=== PATIENT | female | born 1970 | race Caucasian/White ===

== ENCOUNTER 2016-06-18 16:57 | Emergency (ER) | payer OTHER ==
--- NOTE | 2016-06-18 17:53 | Emergency Department Record ---
History of Present Illness - General Chief Complaint: Back Pain/Injury Stated Complaint: LOWER BACK PAIN Time Seen by Provider: 06/18/16 17:45 Source: Patient, RN notes reviewed - History of Present Illness Initial Comments: left flank pain which started yesterday and she has had kidney stones before. Onset/Timin -: Days(s) Similar Symptoms Previously: Yes Place: Home, Work Radiation: Abdomen Severity scale (1-10): 8 Improves With: None Worsens With: None Context: History of kidney stones Associated Symptoms: Nausea/vomiting - Related Data Home Medications Medication Instructions Recorded Confirmed Last Taken Desvenlafaxine Succinate [Pristiq] 50 mg PO DAILY 06/18/16 06/18/16 Unknown Tolterodine Tartrate [Detrol] 1 mg PO DAILY 06/18/16 06/18/16 Unknown Previous Rx's Medication Instructions Recorded Hydrocodone/Acetaminophen [[place] 1 tab PO Q4HR PRN #20 tab 06/18/16 5mg/325mg] Tamsulosin HCl [Flomax] 0.4 mg PO DAILY #7 cap.er.24h 06/18/16 Allergies Allergy/AdvReac Type Severity Reaction Status Date / Time No Known Drug Allergies Allergy Verified 04/05/15 09:25 Travel Screening - Travel/Exposure Within Last 30 Days Have you traveled within the last 30 days?: No Review of Systems Reviewed: No additional complaints except as noted below Constitutional: Reports: As per HPI. Denies: Chills, Fever, Malaise, Night sweats, Weakness, Weight change Eyes: Reports: As per HPI. Denies: Eye discharge, Eye pain, Photophobia, Vision change ENT: Reports: As per HPI. Denies: Congestion, Dental pain, Ear pain, Epistaxis , Hearing loss, Throat pain Respiratory: Reports: As per HPI. Denies: Cough, Dyspnea, Hemoptysis, Stridor, Wheezes Cardiovascular: Reports: As per HPI. Denies: Arrhythmia, Chest pain, Dyspnea on exertion, Edema, Murmurs, Orthopnea, Palpitations, Paroxysmal nocturnal dyspnea, Rheumatic Fever, Syncope Endocrine: Reports: As per HPI. Denies: Fatigue, Heat or cold intolerance, Polydipsia, Polyuria Gastrointestinal: Reports: As per HPI, Abdominal pain (left lower quad pain). Denies: Constipation, Diarrhea, Hematemesis, Hematochezia, Melena, Nausea, Vomiting Genitourinary: Reports: As per HPI. Denies: Abnormal menses, Discharge, Dyspareunia, Dysuria, Frequency, Hematuria, Incontinence, Retention, Urgency Musculoskeletal: Reports: As per HPI. Denies: Arthralgia, Back pain, Gout, Joint swelling, Myalgia, Neck pain Skin: Reports: As per HPI. Denies: Bruising, Change in color, Change in hair/ nails, Lesions, Pruritus, Rash Neurological: Reports: As per HPI. Denies: Abnormal gait, Confusion, Headache, Numbness, Paresthesias, Seizure, Tingling, Tremors, Vertigo, Weakness Psychiatric: Reports: As per HPI. Denies: Anxiety, Auditory hallucinations, Depression, Homicidal thoughts, Suicidal thoughts, Visual hallucinations Hematological/Lymphatic: Reports: As per HPI. Denies: Anemia, Blood Clots, Easy bleeding, Easy bruising, Swollen glands Past Medical History - SOCIAL HISTORY Smoking Status: Never smoker Alcohol Use: None Drug Use: None - RESPIRATORY Hx Respiratory Disorders: No - CARDIOVASCULAR Hx Cardio Disorders: No - NEURO Hx Neuro Disorders: No - GI Hx GI Disorders: No - Hx Genitourinary Disorders: Yes Hx Kidney Stones: Yes Comment:: overactive bladder - ENDOCRINE Hx Endocrine Disorders: No - MUSCULOSKELETAL Hx Musculoskeletal Disorders: No - PSYCH Hx Psych Problems: Yes Hx Depression: Yes - HEMATOLOGY/ONCOLOGY Hx Hematology/Oncology Disorders: No Family Medical History Any Significant Family History?: Yes Hx Heart Disease: Father, Mother *Heart Comment: afib, heart attacks Physical Exam - General General Appearance: Alert, Oriented x3, Cooperative, No acute distress - Head Head exam: Normal inspection - Eye Eye exam: Normal appearance, PERRL Pupils: Normal accommodation - ENT ENT exam: Normal exam, Mucous membranes moist, Normal external ear exam, Normal orophraynx, TM's normal bilaterally Ear exam: Normal external inspection. negative: External canal tenderness Nasal Exam: Normal inspection. negative: Discharge, Sinus tenderness Mouth exam: Normal external inspection, Tongue normal Teeth exam: Normal inspection. negative: Dental caries Throat exam: Normal inspection. negative: Tonsillar erythema, Tonsillar exudate - Neck Neck exam: Normal inspection, Full ROM. negative: Tenderness - Respiratory Respiratory exam: Normal lung sounds bilaterally. negative: Respiratory distress - Cardiovascular Cardiovascular Exam: Regular rate, Normal rhythm, Normal heart sounds - GI/Abdominal GI/Abdominal exam: Soft, Normal bowel sounds, Tenderness (left flank pain), Other (left flank pain) - Rectal Rectal exam: Deferred - exam: Deferred - Extremities Extremities exam: Normal inspection, Full ROM, Normal capillary refill. negative: Tenderness - Back Back exam: Reports: Normal inspection, Full ROM. Denies: Muscle spasm, Rash noted, Tenderness - Neurological Neurological exam: Alert, Normal gait, Oriented X3, Reflexes normal - Psychiatric Psychiatric exam: Normal affect, Normal mood - Skin Skin exam: Dry, Intact, Normal color, Warm Course Vital Signs 06/18/16 17:02 Temperature 97.8 F Pulse Rate 70 Respiratory 20 Rate Blood Pressure 135/84 Pulse Ox 100 Medical Decision Making - Lab Data Result diagrams: 06/18/16 18:00 06/18/16 18:00 Disposition Clinical Impression: Kidney stone, Ureteral stone with hydronephrosis Abdominal pain Qualifiers: Abdominal location: left lower quadrant Qualified Code(s): R10.32 - Left lower quadrant pain Disposition: Home, Self-Care Condition: (2) Stable Instructions: Kidney Stones (ED) Additional Instructions: strain urine follow up with urologist call the office and tell them a new kidney stone. return fever vomiting or severe pain please give [facility] number and call tomorrow. Prescriptions: Hydrocodone/Acetaminophen [[place] 5mg/325mg] 1 tab PO Q4HR PRN #20 tab PRN Reason: Pain - General Tamsulosin HCl [Flomax] 0.4 mg PO DAILY #7 cap.er.24h Forms: Patient Portal Access Time of Disposition: 19:23
[2016-06-18] MEDS ORDERED: 0.9 % SODIUM CHLORIDE 1000ML 1,000 ML IV PRN (17:54)
[2016-06-18] MEDS ORDERED: HYDROMORPHONE HCL 1 MG/ML CPJ IM ONE (17:54)
[2016-06-18] MEDS ORDERED: KETOROLAC 30 MG/ML VIAL IVP ONE (17:54)
[2016-06-18] MEDS ORDERED: ONDANSETRON HCL IV 4 MG/2 ML VIAL IV ONE (17:54)
[2016-06-18 18:08] LABS: HEMATOCRIT 38.2 % (35.0-47.0); HEMOGLOBIN 13.5 gm/dl (11.6-16.0); MEAN CELL VOLUME 95.3 fl (81-97); MEAN CORPUSCULAR HEMOGLOBIN 33.7 pg (27-33); MEAN CORPUSCULAR HGB CONC 35.3 g/dl (32-36); MEAN PLATELET VOLUME 11.1 fl (7.4-10.4); PLATELET COUNT 364 K/uL (130-400); RED BLOOD COUNT 4.01 M/uL (3.80-5.40); RED CELL DISTRIBUTION WIDTH 11.9 % (11.5-14.5); WHITE BLOOD COUNT W/O DIFF 10.8 K/uL (4.2-12.2)
[2016-06-18 18:18] LABS: PLATELET ESTIMATE NORMAL (NORMAL)
[2016-06-18 18:19] LABS: ANION GAP 15.6 (7-16); BLOOD UREA NITROGEN 19 mg/dL (7-17); CARBON DIOXIDE 24.4 mmol/L (22-30); CREATININE 0.8 mg/dL (0.52-1.04); EST GLOMERULAR FILTRATION RATE > 60 ml/min; GLUCOSE,RANDOM 134 mg/dL (70-110)
[2016-06-18 18:46] LABS: URINE APPEARANCE CLEAR; URINE BILIRUBIN SMALL (NEGATIVE); URINE BLOOD LARGE (NEGATIVE); URINE COLOR YELLOW; URINE GLUCOSE (UA) NEGATIVE (NEGATIVE); URINE KETONE NEGATIVE (NEGATIVE); URINE LEUKOCYTE ESTERASE NEGATIVE (NEGATIVE); URINE NITRITE NEGATIVE (NEGATIVE); URINE UROBILINOGEN 0.2 E.U./dL (0.20 - 1.00)
[2016-06-18 18:53] LABS: URINE BACTERIA FEW; URINE MUCUS HEAVY; URINE RBC >50 (NONE SEEN); URINE WBC 0 - 2 (0-2/hpf)
[2016-06-18] MEDS ORDERED: TAMSULOSIN HCL 0.4 MG CAP.ER.24H PO ONE (19:13)
[2016-06-18] MEDS ORDERED: ONDANSETRON 4 MG ODT TABLET SL ONE (19:33)
--- NOTE | 2016-06-23 08:39 | CT SCAN REPORT ---
DATE: 06/18/2016. EXAM: CT OF THE ABDOMEN AND PELVIS WITHOUT CONTRAST. HISTORY: Left flank pain and a history of kidney stones. TECHNIQUE: Axial CT scan of the abdomen and pelvis was performed without oral or intravenous contrast. COMPARISON: CT of the abdomen and pelvis dated 04/05/2015. FINDINGS: There is at least one, and probably a couple of, adjacent calcifications within the upper pole of the left kidney. Moderate hydronephrosis on the left again seen. There also again appears to be a calcification in the region of the left ureteropelvic junction, smaller than the left ureteropelvic junction calculus seen previously. The one seen currently measures approximately 2.5 mm in size and is apparently causing a component of obstruction on the left. On the left ureteropelvic junction, the left ureter appears relatively nondilated, and no additional more distal left ureteral calculus is seen. No bladder calculus is evident. No intrarenal calculi or hydronephrosis seen on the right. No hydroureter seen on the right with no right ureteral calculus evident. No calcified gallstones are seen within the gallbladder. A couple of tiny, low- attenuation foci in the liver also again seen, present previously as well. These each measure about 5.0 mm in size, inadequately evaluated without intravenous contrast, but presumably small hepatic cysts or hemangiomas. The lung bases appear clear. No free intraperitoneal air or free intraperitoneal fluid identified. Evaluation of the bowel and viscera is very limited without oral or intravenous contrast. The appendix is again not well seen, but no appendicitis is identified. Very small periumbilical anterior abdominal wall hernia containing only adipose tissue. IMPRESSION: 1. AN APPROXIMATELY 2.5 MM CALCULUS AT THE LEFT URETEROPELVIC JUNCTION CAUSING A COMPONENT OF OBSTRUCTION. 2. SMALL INTRARENAL CALCULI IN THE LEFT KIDNEY WELL. 3. NO FREE AIR OR FREE FLUID EVIDENT. 4. SMALL PERIUMBILICAL ANTERIOR WALL HERNIA CONTAINING ONLY ADIPOSE TISSUE. 5. A COUPLE OF 5.0 MM LOW-ATTENUATION FOCI IN THE LIVER, NOT ADEQUATELY EVALUATED WITHOUT INTRAVENOUS CONTRAST, BUT PRESUMABLY A COUPLE OF TINY HEPATIC CYSTS OR HEMANGIOMAS. JOB NUMBER: [id number] MTDD
== END 2016-06-18 19:40 | disposition home or self-care (01) ==
LOC: ER 16:57
DX: N13.2 Hydronephrosis with renal and ureteral calculous obstruction (principal); R11.2 Nausea with vomiting, unspecified; R10.32 Left lower quadrant pain; Z87.442 Personal history of urinary calculi
CPT/HCPCS: 99284 ×2; 96374; 96375; 96361; 80048; 81001; 85027; 74176; J1885; J2405; J1170

== ENCOUNTER 2018-05-20 11:14 | Day surgery (SDC) | payer BC, OTHER ==
[2018-05-20] MEDS ORDERED: PROPOFOL 10 MG/ML VIAL IV ONE (11:15)
[2018-05-20] MEDS ORDERED: LIDOCAINE 2% MDV (20MG/ML) 20ML VIAL IV ONE (11:15)
[2018-05-20] MEDS ORDERED: MIDAZOLAM HCL 2MG/2ML VIAL IV ONE (11:15)
--- NOTE | 2018-05-21 10:40 | Operative Note ---
DATE OF SURGERY: 05/20/2018 OPERATION: Screening COLONOSCOPY. PREOPERATIVE DIAGNOSIS: Colon cancer screening, average risk, initial exam. POSTOPERATIVE DIAGNOSIS: Normal colon. ESTIMATED BLOOD LOSS: None. COMPLICATIONS: None. PREPARATION QUALITY: Excellent. PROCEDURE: After informed consent was obtained from the patient, she was placed in the left lateral decubitus position in the endoscopy suite, sedated and monitored by the department of anesthesia. Digital rectal examination was unremarkable. A well-lubricated [id number] colonoscope was inserted into the rectum and advanced to the cecum. The ileocecal valve, appendiceal orifice, cecum, ascending colon, transverse colon, descending colon, sigmoid colon, and rectum were carefully inspected. No polyps, mass lesions, or inflammation was seen. J- turn views and forward views of the rectum and anorectum were unremarkable. The endoscope was straightened, the rectal ampulla deflated, and the endoscope was removed. RECOMMENDATIONS: The patient should resume her medications and diet. I recommend a repeat exam in 10 years based on her average risk and normal exam. As always, thank you for allowing me to participate in the healthcare of your patients. CC: DO TANIA Donohue
== END 2018-05-20 12:25 | disposition home or self-care (01) ==
LOC: HOP 11:14
PROVIDERS: ATTEND Internal Medicine Gastroenterology
DX: Z12.11 Encounter for screening for malignant neoplasm of colon (principal)
CPT/HCPCS: 00812; G0121

== ENCOUNTER 2019-05-16 19:21 | Emergency (ER) | payer BC ==
--- NOTE | 2019-05-16 19:40 | Emergency Department Record ---
History of Present Illness - General Chief complaint: Flank Pain Stated complaint: LT FLANK PAIN Time Seen by Provider: 05/16/19 19:23 Source: Patient Mode of Arrival: Ambulatory Limitations: No limitations - History of Present Illness Initial comments: 49 yo female presents to ED for evaluation of left flank pain symptoms that began last evening (22 hours ago). Patient reports that her pain symptoms have been intermittent, reports similar symptoms associated with kidney stones. Patient denies fevers, chills, or vomiting, does report nausea symptoms. Patient denies abdominal pain or change in stool symptoms. Patient reports that her pain symptoms are a 6/10 currently, improved last night with Tylenol/Ibuprofen. MD Complaint: Other Onset/Timin -: Days(s) Radiation: L flank Severity scale (1-10): 6 Consistency: Constant Improves with: None Worsens with: None Associated Symptoms: Denies other symptoms - Related Data Previous Rx's Medication Instructions Recorded Hydrocodone/Acetaminophen [[place] 1 tab PO Q4HR PRN #20 tab 06/18/16 5mg/325mg] Cephalexin [Keflex] 500 mg PO TID #21 cap 05/16/19 Ibuprofen [Motrin 600Mg] 600 mg PO Q6H #30 tablet 05/16/19 Tamsulosin HCl [Flomax] 0.4 mg PO DAILY #15 cap.er.24h 05/16/19 Allergies Allergy/AdvReac Type Severity Reaction Status Date / Time No Known Drug Allergies Allergy Verified 04/05/15 09:25 Travel Screening - Travel/Exposure Within Last 30 Days Have you traveled within the last 30 days?: No - Travel/Exposure Within Last Year Have you traveled outside the [place] in the last year?: No - Additonal Travel Details Have you been exposed to anyone with a communicable illness?: No - Travel Symptoms Symptom Screening: None Review of Systems Constitutional: Denies: Chills, Fever, Malaise, Night sweats Eyes: Denies: Eye discharge, Eye pain ENT: Denies: Congestion, Ear pain, Epistaxis Respiratory: Denies: Cough, Dyspnea Cardiovascular: Denies: Chest pain, Dyspnea on exertion Endocrine: Denies: Fatigue, Heat or cold intolerance Gastrointestinal: Reports: Nausea. Denies: Abdominal pain, Vomiting Genitourinary: Denies: Incontinence, Retention Musculoskeletal: Reports: Back pain (Flank pain) Skin: Denies: Bruising, Change in color Neurological: Denies: Abnormal gait, Confusion, Headache, Seizure Psychiatric: Denies: Anxiety Hematological/Lymphatic: Denies: Anemia, Blood Clots Past Medical History - SOCIAL HISTORY Smoking Status: Never smoker Alcohol Use: None Drug Use: None - RESPIRATORY Hx Respiratory Disorders: No - CARDIOVASCULAR Hx Cardio Disorders: No - NEURO Hx Neuro Disorders: No Hx CVA: No Hx Headaches: Yes Hx of Migraines: No Hx Seizures: No Hx TIA: No - GI Hx GI Disorders: No - Hx Genitourinary Disorders: Yes Hx Kidney Stones: Yes Hx UTI: Yes Comment:: overactive bladder - ENDOCRINE Hx Endocrine Disorders: No - MUSCULOSKELETAL Hx Musculoskeletal Disorders: No Hx Arthritis: Yes - PSYCH Hx Psych Problems: Yes Hx Depression: Yes - HEMATOLOGY/ONCOLOGY Hx Hematology/Oncology Disorders: No Family Medical History Any Significant Family History?: Yes Hx Heart Disease: Father, Mother *Heart Comment: afib, heart attacks Physical Exam - General General Appearance: Alert, Oriented x3, Cooperative, Mild distress Limitations: No limitations - Head Head exam: Atraumatic, Normocephalic, Normal inspection Head exam detail: negative: Abrasion, Contusion, Reyes's sign, General tenderness, Hematoma, Laceration - Eye Eye exam: Normal appearance. negative: Conjunctival injection, Periorbital swelling, Periorbital tenderness, Scleral icterus - ENT Ear exam: negative: Auricular hematoma, Auricular trauma Nasal Exam: negative: Active bleeding, Discharge, Dried blood, Foreign body Mouth exam: negative: Drooling, Laceration, Muffled voice, Tongue elevation - Neck Neck exam: Normal inspection. negative: Meningismus, Tenderness - Respiratory Respiratory exam: Normal lung sounds bilaterally. negative: Rales, Respiratory distress, Rhonchi, Stridor - Cardiovascular Cardiovascular Exam: Regular rate, Normal rhythm, Normal heart sounds - GI/Abdominal GI/Abdominal exam: Soft. negative: Rebound, Rigid, Tenderness - Rectal Rectal exam: Deferred - exam: Deferred - Extremities Extremities exam: Normal inspection. negative: Calf tenderness, Pedal edema, T enderness - Neurological Neurological exam: Alert, Normal gait, Oriented X3 - Psychiatric Psychiatric exam: Normal affect, Normal mood - Skin Skin exam: Normal color. negative: Abrasion Type of lesion: negative: abrasion Course Vital Signs 05/16/19 19:34 Temperature 97.8 F Pulse Rate 64 Respiratory 18 Rate Blood Pressure 150/96 Pulse Ox 98 - Reevaluation(s) Reevaluation #1: 05/16/19 20:20 Laboratory studies were reviewed and appear grossly unremarkable for an acute process. Reevaluation #2: 05/16/19 20:47 UA was reviewed: 0-2 RBCs 3-5 WBCs 0-2 Epis 1+ Bacteria Patien thas normal WBC, afebrile, UA does not appear c/w acute infection (pyelonephritis) Patient is currently in CT for imaging. Reevaluation #3: 05/16/19 21:07 CT Abdomen and Pelvis: Severe hydronephrosis resulting from a 4 mm obstructing calculus left UVJ Patient was updated on all results, pain currently at 3/10 at this time. Will consult with Dr. Craig. Reevaluation #4: 05/16/19 22:05 Case was discussed with Dr. Mao, reviewed patient's UA results and CT imag ing results including severe hydronephrosis and obstructing ureteral calculus. Dr. Mao recommends trial of outpatient expulsive therapy for passage of patient's kidney stone. Will initiate treatment with Flomax, Keflex (for 1+ bacteria and 3-5 WBCs) and Motrin 600 mg as directed with instructions to call the office Morning for follow-up. Patient and her SO are in agreement with the plan of care as discussed. Medical Decision Making - Lab Data Result diagrams: 05/16/19 19:30 05/16/19 19:30 Disposition Disposition: Discharge Clinical Impression: Kidney stone Disposition: Home, Self-Care Condition: (2) Stable Instructions: Kidney Stones (ED) Additional Instructions: Return to ED if your symptoms worsen or if you have any concerns. Flomax, Keflex, and Motrin 600 mg as directed. Follow-up with Dr. Mao , call [phone] for an appointment. Prescriptions: Tamsulosin HCl [Flomax] 0.4 mg PO DAILY #15 cap.er.24h Cephalexin [Keflex] 500 mg PO TID #21 cap Ibuprofen [Motrin 600Mg] 600 mg PO Q6H #30 tablet Referrals: RAINE MAO D.O. [DOCTOR OF OSTEOPATH] - Forms: Patient Portal Access Time of Disposition: 22:08 Quality - Quality Measures Quality Measures: N/A - Blood Pressure Screening Does Patient Have Any of the Following: No Blood Pressure Classification: Hypertensive Reading Systolic Measurement: 150 Diastolic Measurement: 96 Screening for High Blood Pressure: < First Hypertensive BP, F/U Documented > [G8950] First Hypertensive Follow-up Interventions: Referral to alternative/primary care provider.
[2019-05-16] MEDS ORDERED: KETOROLAC 30 MG/ML VIAL IVP ONE (19:41)
[2019-05-16] MEDS ORDERED: 0.9 % SODIUM CHLORIDE 1000ML 1,000 ML IV SCH (19:45)
[2019-05-16 19:56] LABS: HEMOGLOBIN 13.1 gm/dl (11.6-16.0); MEAN CELL VOLUME 94.6 fl (81-97); MEAN CORPUSCULAR HEMOGLOBIN 33.5 pg (27-33); MEAN CORPUSCULAR HGB CONC 35.4 g/dl (32-36); MEAN PLATELET VOLUME 10.8 fl (7.4-10.4); PLATELET COUNT 364 K/uL (130-400); RED BLOOD COUNT 3.91 M/uL (3.80-5.40); RED CELL DISTRIBUTION WIDTH 12.3 % (11.5-14.5); WHITE BLOOD COUNT W/O DIFF 7.1 K/uL (4.2-12.2)
[2019-05-16 20:05] LABS: BLOOD UREA NITROGEN 13 mg/dL (6-20); EST GLOMERULAR FILTRATION RATE > 60 mL/min
[2019-05-16 20:06] LABS: TOTAL PROTEIN 7.2 g/dL (6.6-8.7)
[2019-05-16 20:08] LABS: GLUCOSE,RANDOM 95 mg/dL (74-109)
[2019-05-16 20:11] LABS: ALB/GLOB RATIO 1.8 (1.1-1.8); ALBUMIN 4.6 g/dL (4.0-5.0); ALKALINE PHOSPHATASE 118 U/L (35-104); ALT/SGPT 15 U/L (<33); AST/SGOT 16 U/L (10.0-35.0)
[2019-05-16 20:37] LABS: URINE BILIRUBIN NEGATIVE (NEGATIVE); URINE BLOOD TRACE-I (NEGATIVE); URINE COLOR YELLOW; URINE GLUCOSE (UA) NEGATIVE (NEGATIVE); URINE KETONE NEGATIVE (NEGATIVE); URINE LEUKOCYTE ESTERASE SMALL (NEGATIVE); URINE NITRITE NEGATIVE (NEGATIVE); URINE PROTEIN NEGATIVE (NEGATIVE); URINE UROBILINOGEN 0.2 E.U./dL (0.20 - 1.00)
[2019-05-16 20:38] LABS: URINE APPEARANCE SL CLOUDY
[2019-05-16 20:44] LABS: URINE RBC 0 - 2 (NONE SEEN)
[2019-05-16 20:45] LABS: URINE BACTERIA 1+; URINE EPITHELIAL CELLS 0 - 2 (FEW)
--- NOTE | 2019-05-16 20:53 | CT SCAN REPORT ---
EXAMINATION: CT Abdomen and Pelvis without IV Contrast EXAM DATE: 05/16/2019 8:48 PM TECHNIQUE: Standard protocol CT imaging of the abdomen and pelvis was performed without intravenous c ontrast. INDICATION: flank pain COMPARISON: None ENCOUNTER: Not applicable CT ABDOMEN AND PELVIS FINDINGS: Lung Bases: Included extent of the lung bases are clear. Hepatobiliary: The liver has a normal size with a smooth surface. Normal gallbladder. Pancreas: The pancreas is normal. Spleen: The spleen is not enlarged. Adrenals: The adrenal glands are normal. Kidneys, Ureters, & Bladder: Kidneys are symmetric in size although there is severe left hydrouretero nephrosis due to a partially obstructing 4 mm calculus 1 cm proximal to the left UVJ best seen on axi al image 2, 160. 2 additional left intrarenal calculi in the interpolar region measuring up to 4 mm. Normal right kidney with no hydronephrosis. The urinary bladder is unremarkable. Gastrointestinal: The stomach and small bowel are normal with no obstruction or inflammation. Normal appendix. The large bowel is within normal limits. Reproductive Organs: Unremarkable Lymphatic System: There is no adenopathy within the abdomen or pelvis. Vasculature: Normal caliber abdominal aorta Peritoneum: No free fluid, free air, or inflammation Abdominal wall & Musculoskeletal: No suspicious bone lesions. Assessment of the solid organs, soft tissues, and vascular structures is overall limited on noncontra st imaging, IMPRESSION: 1. Severe left hydroureteronephrosis due to partially obstructing 4 mm calculus near the left uretero vesical junction. 2. Additional left intrarenal calculi. 3. Normal appendix. Dictated by: Luke Daniels MD on 05/16/2019 8:48 PM. .
[2019-05-16] MEDS ORDERED: TAMSULOSIN HCL 0.4 MG CAP.ER.24H PO ONE (22:09)
== END 2019-05-16 22:18 | disposition home or self-care (01) ==
LOC: ER 19:21
DX: N13.2 Hydronephrosis with renal and ureteral calculous obstruction (principal); R11.0 Nausea; Z87.442 Personal history of urinary calculi
CPT/HCPCS: 99284 ×2; 96374; 96361; 80053; 81001; 85027; 74176; J1885; J7030